=== PATIENT | male | born 1950 | race Hispanic/Latino ===

== ENCOUNTER 2018-11-03 06:13 | Day surgery (SDC) | payer MEDICARE, OTHER ==
[2018-11-03] MEDS ORDERED: NACL 0.9% 500 ML 500 ML IV SCH (07:00)
[2018-11-03 07:02] LABS: Basophils # (Auto) 0.1 K/mm3 (0.0-0.1); Basophils % (Auto) 0.7 % (0.0-1.8); Eosinophils # (Auto) 0.4 K/mm3 (0.0-0.4); Eosinophils % (Auto) 2.2 % (0.0-4.3); Hematocrit 45.7 % (35.5-45.6); Hemoglobin 15.2 gm/dl (11.8-15.2); Lymphocytes # (Auto) 4.1 K/mm3 (1.2-5.4); Lymphocytes % (Auto) 25.2 % (13.4-35.0); Mean Corpuscular HGB Conc 33 % (32-34); Mean Corpuscular Volume 92 fl (84-94); Monocytes # (Auto) 0.9 K/mm3 (0.0-0.8); Monocytes % (Auto) 5.4 % (0.0-7.3); Platelet Count 207 K/mm3 (140-440); Red Blood Count 4.96 M/mm3 (3.65-5.03); Red Cell Distribution Width 14.4 % (13.2-15.2)
[2018-11-03 07:14] LABS: INR 0.85 (0.87-1.13)
[2018-11-03 07:18] LABS: BUN/Creatinine Ratio 12; Blood Urea Nitrogen 11 mg/dL (9-20); Calcium 8.6 mg/dL (8.4-10.2); Hemolysis Index 9
[2018-11-03] MEDS ORDERED: BRILINTA PO ONE (08:21)
[2018-11-03] MEDS ORDERED: BRILINTA ONE (08:22)
[2018-11-03] MEDS ORDERED: HEPARIN/NS 5000 UNIT/500ML(CATH LAB) 1,000 ML IR ONE (08:30)
[2018-11-03] MEDS ORDERED: CALAN ONE (08:31)
[2018-11-03] MEDS ORDERED: HEPARIN 10,000 UNITS/10 ML ONE (08:31)
[2018-11-03] MEDS ORDERED: NITROGLYCERIN SYRINGE 3 ML ONE (08:31)
[2018-11-03] MEDS ORDERED: WATER FOR INJ (PF) ONE (08:49)
[2018-11-03] MEDS: VERSED ONE ×2 (08:55→08:58)
[2018-11-03] MEDS: XYLOCAINE 2% INFILTRATI ONE ×2 (08:56→09:01)
[2018-11-03] MEDS: SUBLIMAZE ONE ×2 (08:56→08:58)
[2018-11-03] MEDS ORDERED: NACL 0.9% 50 ML ONE (09:07)
[2018-11-03] MEDS: ANGIOMAX IV ONE ×2 (09:15→09:19)
--- NOTE | 2018-11-03 10:13 | Short Stay Summary ---
Short Stay Documentation Date of service: 11/03/18 - History H&P: obtained from office - Allergies and Medications Current Medications: Allergies aspirin Allergy (Verified 11/03/18 06:59) RESTRICT AIRWAY clopidogrel [From Plavix] Allergy (Verified 11/03/18 08:26) Shortness of Breath Penicillins Allergy (Verified 11/03/18 06:59) RESTRICT THE AIRWAY Home Medications Medication Instructions Recorded Confirmed Last Taken Type ALBUTEROL Inhaler (OR & NICU) 2 puff INHALATION PRN 11/03/18 11/03/18 10/31/18 History [ProAir HFA Inhaler] 2 puff AtorvaSTATin [Lipitor] 20 mg PO HS 11/03/18 11/03/18 11/02/18 History 20mg Budesonide/Formoterol Fumarate 2 puff INHALATION BID 11/03/18 11/03/18 11/02/18 History [Symbicort 160-4.5 Mcg Inhaler] 2 puffs Citalopram Hydrobromide 20 mg PO DAILY 11/03/18 11/03/18 11/02/18 History [Citalopram HBr] 20mg Ticagrelor [Brilinta] 90 mg PO DAILY 11/03/18 11/03/18 11/02/18 History 90mg Active Medications Sodium Chloride (Nacl 0.9% 500 Ml) 500 mls @ 50 mls/hr IV DIRECT DEREJE Stop: 11/03/18 16:59 Last Admin: 11/03/18 08:03 Dose: 50 mls/hr Documented by: - Brief post op/procedure progress note Date of procedure: 11/03/18 Pre-op diagnosis: sob Post-op diagnosis: same (cad) Procedure: see report Anesthesia: local Estimated blood loss: none Pathology: none - Disposition Condition at discharge: Good Disposition: [id number] TO HOME OR SELFCARE - Discharge Diagnoses (1) CAD (coronary artery disease) Status: Acute Qualifiers: Coronary Disease-Associated Artery/Lesion type: [place] artery Associated angina: with stable angina (2) Hyperlipemia Status: Chronic Qualifiers: Hyperlipidemia type: mixed hyperlipidemia Qualified Code(s): E78.2 - Mixed hyperlipidemia (3) Hypertension Status: Chronic Qualifiers: Hypertension type: essential hypertension Qualified Code(s): I10 - Essential (primary) hypertension (4) Smoker Status: Chronic Short Stay Discharge Plan Activity: advance as tolerated Diet: low fat, low cholesterol, low salt Wound: keep clean and dry Follow up with: MIMI LAST JR, MD [Primary Care Provider] - 7 Days
--- NOTE | 2018-11-03 10:41 | Cardiac Catherization Report ---
LEFT HEART CATHETERIZATION WITH INTRAVASCULAR ULTRASOUND CLINICAL INFORMATION: This is a 68-year-old white male with history of smoker, hyperlipidemia, is allergic to ASPIRIN and PLAVIX, who has known coronary artery disease based on catheterization 2 years ago with left main, LAD mid 80% with FFR of 0.80 here for left heart catheterization, possible PCI. The patient was done under moderate sedation, 1 mg Versed, 50 mcg of fentanyl. Total sedation time was 31 minutes, starting at 8:58 a.m., finishing at 9:29 a.m. Left heart catheterization performed via the right radial artery, sterile technique, local anesthesia, 6-Tajik radial sheath inserted. LV gram done in WILLARD and OWUSU view shows normal LV function, LVEDP 26 mmHg, LV is 160. Aortic is 160/76. No gradient across the aortic valve on pullback. EF 55-60%. RCA engaged with JR4 catheter, is a small nondominant vessel, patent. Left system engaged with an EBU 3.5 catheter. Left main has some mild catheter dampening noted and then LAD is a medium caliber vessel, mid right at the bifurcation has a 80% lesion, however, medium caliber diagonal 1 is patent, mild luminal irregularities. Rest of LAD is patent with mild luminal irregularities. Circumflex is a large, dominant vessel, patent with mild irregularities and AV groove. OM1 is a small to medium caliber and patent. OM2 is a large caliber vessel, has mild luminal irregularities and bifurcates in the upper and lower branch. The upper branch has an 80% lesion and the lower branch has an 80% lesion at the ostium. LPDA is a medium caliber vessel, patent with mild luminal irregularities. INTRAVASCULAR ULTRASOUND OF THE LEFT MAIN, LAD: 1. Using the EBU 3.5 guiding catheter, crossed with distal LAD with short [place] wire. 2. Intravascular ultrasound showed distal reference vessel in the LAD to be 3.0 mm. No disease at the ostium of the diagonal 1 but disease in mid lad prior to d1 has a significant MLA of less than 2.5 with heavy plaque burden in the mid LAD and throughout the proximal LAD and noted on ultrasound as we pulled back into the left main, the patient has diffuse disease with 50% stenosis with two areas of MLA, one of 5 mm2 and next area of 5.6 mm2 noted. So, removed coronary wire and IVUS and multiple angiograms, continue LAUREL 3 flow. No dissection or perforation. The left main disease is 50%. The patient did receive intracoronary nitroglycerin prior to IVUS. 3. 6-Tajik guiding catheter taken over the guidewire, 6-Tajik radial sheath was discontinued. Radial band applied. No hematoma, no bleeding. Appropriate ACT, as the patient was on Angiomax. SUMMARY: 1. Significant left main disease, 50% mid to distal diffuse with an MLA of 5 mm2 with a mid LAD 80% with a diagonal 1 patent. Rest of the LAD from the mid to distal is patent. 2. Circumflex large dominant vessel with mild luminal irregularities with OM1 patent, OM2 distally has disease, LPDA patent. The patient has normal LV function. 3. The patient will continue medical management. Discussed this in detail with the patient and patient's family and the patient is going to [place] for bypass surgery. JOB# [id number] HEMALATHA/AMANDA HIGUERA
[2018-11-03] MEDS ORDERED: NORCO 5/325 ONE (10:58)
[2018-11-03] MEDS ORDERED: NORCO 5/325 PO ONE ×2 (10:58→11:00)
[2018-11-03 13:34] VITALS: BP 128/55
== END 2018-11-03 14:11 | disposition home or self-care (01) ==
LOC: CATHLABREC 06:13
PROVIDERS: ATTEND Internal Medicine
DX: I25.10 Atherosclerotic heart disease of native coronary artery without angina pectoris (principal); E78.5 Hyperlipidemia, unspecified; F17.210 Nicotine dependence, cigarettes, uncomplicated; I10 Essential (primary) hypertension; E78.00 Pure hypercholesterolemia, unspecified; J45.909 Unspecified asthma, uncomplicated; F41.9 Anxiety disorder, unspecified; Z88.0 Allergy status to penicillin; Z88.6 Allergy status to analgesic agent; Z79.899 Other long term (current) drug therapy; Z98.890 Other specified postprocedural states; Z88.8 Allergy status to other drugs, medicaments and biological substances
CPT/HCPCS: 36415; 80048; 85025; 85347; 85610; 85730; 92978; 93005; 93010; 93458; 99156; 99157; C1753; C1769; C1887; C1894; J0583; J1644; J2250; J3010; J7040; Q9967